=== PATIENT | female | born 1970 | race African-American/Black ===

== ENCOUNTER 2016-07-30 13:29 | Emergency (ER) | payer SELFPAY ==
[2016-07-30 14:19] LABS: BHCG - Serum NEGATIVE (NEGATIVE); Pregs Control Background? CLEAR/WHITE (CLR/WHITE); Pregs Control Bar Appear? YES (CONTROL BAR)
[2016-07-30 14:20] LABS: Prothrombin Time 14.7 SEC (12.0-14.7)
[2016-07-30 14:21] LABS: INR-International Normal Ratio 1.1
[2016-07-30 14:26] LABS: Albumin 3.7 g/dL (3.5-5.0); Alkaline Phosphatase 35 U/L (40-150); BUN (Urea Nitrogen) 12 mg/dL (7.0-18.7); Bilirubin, Total 0.4 mg/dL (0.2-1.2); Calc. Creatinine Clearance 0 mL/min (70-130); Calcium 8.4 mg/dL (7.8-10.44); Carbon Dioxide 19 mmol/L (22-29); Chloride 105 mmol/L (98-107); Estimated GFR-MDRD Greater than 90; Globulin 3.6 g/dL (2.4-3.5); Glucose 120 mg/dL (70-105); Potassium 3.7 mmol/L (3.5-5.1); Protein, Total 7.3 g/dL (6.0-8.3); Sodium 135 mmol/L (136-145)
[2016-07-30 14:27] LABS: ALT (SGPT) 10 U/L (8-55); AST (SGOT) 18 U/L (5-34)
[2016-07-30 14:28] LABS: Anion Gap 15 mmol/L (10-20)
[2016-07-30 14:29] LABS: CKMB 0.3 ng/mL (0-6.6); Troponin I Less than 0.010 ng/mL (< 0.028)
[2016-07-30 14:38] LABS: Red Blood Cell (RBC) Count 3.59 mill/uL (4.20-5.40); White Blood Cell (WBC) Count 6.3 thou/uL (4.8-10.8)
[2016-07-30 14:39] LABS: Hemoglobin 5.5 g/dL (12.0-16.0); Mean Corpuscular Hemoglobin 15.4 pg (27.0-31.0); Mean Corpuscular Volume 59.8 fL (81.0-99.0)
[2016-07-30 14:40] LABS: #Basophils 0.1 thou/uL (0.0-0.2); #Lymphocytes 1.5 thou/uL (1.20-3.40); #Monocytes 0.5 thou/uL (0.11-0.59); #Neutrophils 4.3 thou/uL (1.40-6.50); %Eosinophils 0.6 % (0.0-10.0); %Lymphocytes 23.3 % (21.0-51.0); %Monocytes 7.3 % (0.0-10.0); %Neutrophils 67.9 % (42.0-75.0); Mean Corpuscular HGB CONC 25.8 g/dL (32.0-36.0); Mean Platelet Volume 6.5 fL (7.4-10.4); Platelet Count 335 thou/uL (130-400); RBC Distribution Width 16.5 % (11.5-14.5)
[2016-07-30 14:48] LABS: Microcytosis MODERATE=15-30 cells (100X) (0-5/hpf); Poikilocytosis SLIGHT = 6-15 cells (100X) (0-5/hpf)
[2016-07-30 14:49] LABS: Anisocytosis SLIGHT = 6-15 cells (100X) (0-5/hpf); Hypochromia MODERATE=16-30 cells (100X) (0-5/hpf); PLT Morphology Comment Appears Adequate
[2016-07-30 14:50] LABS: Acetaminophen Less than 6.0 mcg/mL (6.0-30.0); Alcohol Less than 10 mg/dL (Less than 10); Salicylate Less than 8.0 mg/dL (15.0-30.0)
[2016-07-30 15:54] LABS: MDiff Complete? YES
--- NOTE | 2016-07-30 18:03 | RAD ---
PORTABLE CHEST 07/30/16 An AP portable film at 1334 is compared with a 03/12/14 study. The heart is normal in size and the lungs are clear. There is no sign of pneumonia, pleural effusion or other acute pathology in the chest. IMPRESSION: No acute thoracic findings. POS: [facility]
--- NOTE | 2016-07-30 23:46 | CT ---
PRELIMINARY REPORT/[facility]/EMERGENCY AFTER HOURS PROCEDURE: EXAM: CT Head Without Intravenous Contrast CLINICAL HISTORY: 45 years old, female; Signs and symptoms; Altered mental status/memory loss; Patient HX: AMS, drowsi ness TECHNIQUE: Axial computed tomography images of the head/brain without intravenous contrast. COMPARISON: No relevant prior studies available. FINDINGS: Brain: There is no acute intracranial hemorrhage or mass effect. The normal barriga-white delineation i s preserved. Ventricles: The ventricles are normal in size and configuration for age. Bones/joints: The calvarium is intact. Soft tissues: Unremarkable. Sinuses: The paranasal sinues are normally aerated. Mastoid air cells: Unremarkable as visualized. No mastoid effusion. IMPRESSION: No acute intracranial hemorrhage or edema. Thank you for allowing us to participate in the care of your patient. Dictated and Authenticated by: Maryuri Teixeira MD 07/30/2016 2:07 PM Central Time ([place] \T\ [place]) FINAL REPORT CT OF THE BRAIN WITHOUT CONTRAST 07/30/[address] was done for evaluation of mental status changes. The ventricles are normal in size with no shift. No intracranial bleeding, mass or sign of acute stroke was found. The barriga-white dis tention was good. The calvarium appears normal. The visible paranasal sinuses and mastoid air cells are clear. IMPRESSION: No acute intracranial findings. Report in agreement with preliminary reading by Hong. POS: HOME
== END 2016-07-30 17:47 | disposition short-term general hospital (02) ==
LOC: BURERS 13:29
DX: D50.0 Iron deficiency anemia secondary to blood loss (chronic) (principal); L03.116 Cellulitis of left lower limb; I99.8 Other disorder of circulatory system; I20.9 Angina pectoris, unspecified
CPT/HCPCS: 36415; 36416; 36430; 70450; 71010; 80053; 80307; 82553; 83605; 84484; 84703; 85025; 85610; 86850; 86900; 86901; 86922; 87040; 93005; 96360; P9016

== ENCOUNTER 2016-10-26 13:32 | Emergency (ER) | payer SELFPAY ==
[2016-10-26] MEDS ORDERED: traMADol HCl 50 MG TAB ONE (14:14)
--- NOTE | 2016-10-26 15:29 | RAD ---
RIGHT ANKLE 3 VIEWS: HISTORY: Fall, right ankle pain. FINDINGS/IMPRESSION: The ankle mortise is maintained. No acute fracture or dislocation is identified. There is a small posterior calcaneal spur. POS: [facility]
--- NOTE | 2016-10-26 15:31 | RAD ---
RIGHT FOOT 3 VIEWS: HISTORY: Injury, right foot pain. FINDINGS/IMPRESSION: A hallux valgus deformity is seen. No fracture or dislocation is seen. A small posterior calcaneal spur is present. POS: [facility]
== END 2016-10-26 14:25 | disposition home or self-care (01) ==
LOC: BURERS 13:32
DX: S93.401A Sprain of unspecified ligament of right ankle, initial encounter (principal); W17.2XXA Fall into hole, initial encounter